=== PATIENT | female | born 1965 | race Caucasian/White ===

== ENCOUNTER 2020-11-05 18:08 | Inpatient (IN) | payer BC ==
[~2020-11-05] VITALS: Ht 170.2 cm; Wt 72.0 kg
[2020-11-05 18:51] LABS: Basophils # (auto) 0 10 ^3/uL (0-0.2); Basophils % (auto) 0.2 % (0.0-2.0); Eosinophils # (auto) 0 10 ^3/uL (0-0.8); Eosinophils % (auto) 0.1 % (0.0-7.0); Lymphocytes # (auto) 1.3 10 ^3/uL (0.4-5.4); Lymphocytes % (auto) 9.7 % (10.0-50.0); Mean Corpuscular Hgb Conc. 34.2 g/dL (32.0-36.0); Mean Corpuscular Volume 93.4 fL (80.0-100.0); Monocytes # (auto) 1.5 10 ^3/uL (0-1.3); Monocytes % (auto) 11.4 % (0.0-12.0); Neutrophils # (auto) 10.4 10 ^3/uL (1.6-8.6); Neutrophils % (auto) 78.6 % (37.0-80.0); Red Blood Cells 4.39 10^6/uL (4.0-5.20); Red Cell Distribution Width 12.9 % (11.8-14.3); White Blood Cell 13.3 10^3/uL (4.4-10.8)
[2020-11-05 19:08] LABS: Albumin 3.6 g/dL (3.4-5.0); Calcium 8.7 mg/dL (8.5-10.1); Potassium 3.4 mmol/L (3.5-5.1)
[2020-11-05 19:12] LABS: Bilirubin, Total 1.3 mg/dL (0.2-1.0); Total Protein 7.8 g/dL (6.4-8.2)
[2020-11-05] MEDS ORDERED: TAMSULOSIN HYDROCHLORIDE 0.4 MG CAP PO ONE (21:45)
[2020-11-05] MEDS ORDERED: KETOROLAC TROMETH 30 MG/ML 1ML VIAL IV ONE (21:45)
[2020-11-05] MEDS ORDERED: SODIUM CHLORIDE 0.9% 1,000 ML IV ONE ×2 (21:45)
[2020-11-05] MEDS ORDERED: TEMAZEPAM 15 MG CAP PO PRN (22:15)
[2020-11-05] MEDS ORDERED: ALUM & MAG HYDROX-SIMETH LIQ(MAALOX) 30 ML PO PRN (22:15)
[2020-11-05] MEDS ORDERED: HYDROcodone-ACET 5/325MG TAB PO PRN (22:15)
[2020-11-05] MEDS ORDERED: ACETAMINOPHEN 325 MG TAB PO PRN (22:15)
[2020-11-05] MEDS ORDERED: LORazepam 0.5 MG TAB PO PRN (22:15)
[2020-11-06] MEDS: SODIUM CHLORIDE 0.9% 1,000 ML IV SCH ×2 (01:10→18:37)
[2020-11-06 05:28] LABS: Basophils # (auto) 0 10 ^3/uL (0-0.2); Basophils % (auto) 0.3 % (0.0-2.0); Eosinophils # (auto) 0 10 ^3/uL (0-0.8); Eosinophils % (auto) 0.4 % (0.0-7.0); Hematocrit 35.2 % (36.0-46.0); Hemoglobin 12.2 g/dL (12.2-16.2); Lymphocytes # (auto) 1.6 10 ^3/uL (0.4-5.4); Lymphocytes % (auto) 18.3 % (10.0-50.0); Mean Corpuscular Hemoglobin 32.5 pg (28.0-32.0); Mean Corpuscular Hgb Conc. 34.7 g/dL (32.0-36.0); Mean Corpuscular Volume 93.7 fL (80.0-100.0); Monocytes # (auto) 1.1 10 ^3/uL (0-1.3); Monocytes % (auto) 12.1 % (0.0-12.0); Neutrophils # (auto) 6.2 10 ^3/uL (1.6-8.6); Neutrophils % (auto) 68.9 % (37.0-80.0); Red Blood Cells 3.76 10^6/uL (4.0-5.20); Red Cell Distribution Width 12.8 % (11.8-14.3); White Blood Cell 8.9 10^3/uL (4.4-10.8)
[2020-11-06 05:47] LABS: Potassium 3.3 mmol/L (3.5-5.1)
[2020-11-06 05:54] LABS: BUN/Creatinine Ratio 15.5; Calcium 8.1 mg/dL (8.5-10.1)
[2020-11-06] MEDS ORDERED: POTASSIUM EFFERVESENT TAB 25 MEQ PO ONE (12:30)
[2020-11-06] MEDS ORDERED: levoFLOXacin 500 MG TAB PO ONE (12:30)
[2020-11-06 13:29] LABS: Urine Blood 2+ /uL (Negative); Urine Specific Gravity 1.012 (1.001-1.035)
[2020-11-06 13:49] LABS: Urine Bacteria FEW /hpf (None Seen); Urine Mucus FEW (None Seen); Urine WBC 48 /hpf (0 - 5)
[2020-11-06 17:00] VITALS: BP 88/34
[2020-11-06 20:12] LABS: INR 1.05 (0.9-1.15)
[2020-11-06] MEDS: DOCUSATE SOD 100 MG CAP PO PRN (20:39)
[2020-11-06 22:00] VITALS: BP 100/47
[2020-11-07] MEDS: MORPHINE SULF INJ 2 MG/ML SYRINGE 1ML IV PRN ×3 (04:45→22:06)
[2020-11-07 05:00] VITALS: BP 103/57
[2020-11-07 06:04] LABS: Basophils # (auto) 0 10 ^3/uL (0-0.2); Basophils % (auto) 0.3 % (0.0-2.0); Eosinophils # (auto) 0.1 10 ^3/uL (0-0.8); Eosinophils % (auto) 1.2 % (0.0-7.0); Hematocrit 36.6 % (36.0-46.0); Hemoglobin 12.7 g/dL (12.2-16.2); Lymphocytes # (auto) 1.2 10 ^3/uL (0.4-5.4); Lymphocytes % (auto) 16.6 % (10.0-50.0); Mean Corpuscular Hemoglobin 32.6 pg (28.0-32.0); Mean Corpuscular Hgb Conc. 34.7 g/dL (32.0-36.0); Mean Corpuscular Volume 94.1 fL (80.0-100.0); Monocytes # (auto) 0.9 10 ^3/uL (0-1.3); Monocytes % (auto) 12.2 % (0.0-12.0); Neutrophils # (auto) 4.9 10 ^3/uL (1.6-8.6); Neutrophils % (auto) 69.7 % (37.0-80.0); Red Blood Cells 3.89 10^6/uL (4.0-5.20); Red Cell Distribution Width 12.5 % (11.8-14.3); White Blood Cell 7.1 10^3/uL (4.4-10.8)
[2020-11-07 06:20] LABS: INR 1.04 (0.9-1.15)
[2020-11-07 06:47] LABS: Potassium 3.9 mmol/L (3.5-5.1)
[2020-11-07 07:05] LABS: Albumin 2.8 g/dL (3.4-5.0); BUN/Creatinine Ratio 17.1; Bilirubin, Total 0.6 mg/dL (0.2-1.0); Calcium 8.4 mg/dL (8.5-10.1); Total Protein 6.6 g/dL (6.4-8.2)
[2020-11-07 09:00] VITALS: BP 90/36
[2020-11-07] MEDS: levoFLOXacin 500 MG TAB PO SCH (09:34)
[2020-11-07] MEDS ORDERED: LIDOCAINE 2%HCL (LOCAL ANESTH.) INJ 20ML MDV ONE ×2 (10:39→11:31)
[2020-11-07] MEDS ORDERED: fentaNYL CITRATE 100 MCG/2 ML VL ONE (11:01)
[2020-11-07] MEDS ORDERED: MIDAZOLAM HCL 2MG/2ML 2ml VIAL (1mg/ml) ONE (11:01)
[2020-11-07] MEDS ORDERED: ONDANSETRON HCL 4 MG/2 ML VIAL ONE (11:08)
[2020-11-07] MEDS ORDERED: IOHEXOL 350 MG/ML 100ML IJ ONE (11:08)
[2020-11-07] MEDS ORDERED: diphenhdrAMINE HCL 50 MG/1 ML VL ONE (11:24)
[2020-11-07 12:46] VITALS: BP 110/64
[2020-11-07] MEDS: ONDANSETRON HCL 4 MG/2 ML VIAL IV PRN (14:30)
[2020-11-07] MEDS: SODIUM CHLORIDE 0.9% 1,000 ML IV SCH (16:57)
[2020-11-07] MEDS: Ensure HIGH Protein Chocolate 8oz Bottle PO SCH (18:00)
[2020-11-07] MEDS: traMADol HCL 50 MG TAB PO PRN (19:59)
[2020-11-07 22:00] VITALS: BP_SYST 116; BP_SYST 118; BP_DIAS 64; BP_DIAS 72
[2020-11-08] MEDS: SODIUM CHLORIDE 0.9% 1,000 ML IV SCH ×2 (01:00→14:37)
[2020-11-08] MEDS: MORPHINE SULF INJ 2 MG/ML SYRINGE 1ML IV PRN ×2 (04:33→21:11)
[2020-11-08 05:00] VITALS: BP 100/49
[2020-11-08 06:03] LABS: Basophils # (auto) 0 10 ^3/uL (0-0.2); Basophils % (auto) 0.4 % (0.0-2.0); Eosinophils # (auto) 0.1 10 ^3/uL (0-0.8); Eosinophils % (auto) 1.5 % (0.0-7.0); Hematocrit 30.8 % (36.0-46.0); Hemoglobin 10.9 g/dL (12.2-16.2); Lymphocytes # (auto) 1.6 10 ^3/uL (0.4-5.4); Lymphocytes % (auto) 31.9 % (10.0-50.0); Mean Corpuscular Hemoglobin 33.2 pg (28.0-32.0); Mean Corpuscular Hgb Conc. 35.5 g/dL (32.0-36.0); Mean Corpuscular Volume 93.5 fL (80.0-100.0); Monocytes # (auto) 0.6 10 ^3/uL (0-1.3); Neutrophils # (auto) 2.8 10 ^3/uL (1.6-8.6); Neutrophils % (auto) 54.2 % (37.0-80.0); Red Blood Cells 3.29 10^6/uL (4.0-5.20); Red Cell Distribution Width 12.6 % (11.8-14.3); White Blood Cell 5.2 10^3/uL (4.4-10.8)
[2020-11-08 06:24] LABS: Potassium 3.5 mmol/L (3.5-5.1)
[2020-11-08 06:35] LABS: Albumin 2.4 g/dL (3.4-5.0); BUN/Creatinine Ratio 14.6; Bilirubin, Total 0.7 mg/dL (0.2-1.0); Calcium 8.2 mg/dL (8.5-10.1); Total Protein 5.8 g/dL (6.4-8.2)
[2020-11-08] MEDS: Ensure HIGH Protein Chocolate 8oz Bottle PO SCH ×3 (08:00→18:00)
[2020-11-08] MEDS: traMADol HCL 50 MG TAB PO PRN ×2 (08:28→17:03)
[2020-11-08 09:00] VITALS: BP 95/36
[2020-11-08] MEDS: levoFLOXacin 500 MG TAB PO SCH (10:00)
[2020-11-08] MEDS: ONDANSETRON HCL 4 MG/2 ML VIAL IV PRN ×3 (11:39→21:10)
[2020-11-08 13:00] VITALS: BP 96/45
[2020-11-08] MEDS: LACTULOSE 20Gm/30ML SOLN PO PRN (15:30)
[2020-11-08 17:00] VITALS: BP 100/49
[2020-11-08 22:00] VITALS: BP 124/60
[2020-11-09] MEDS: traMADol HCL 50 MG TAB PO PRN ×3 (01:58→18:32)
[2020-11-09 05:00] VITALS: BP 82/47
[2020-11-09 06:28] LABS: Basophils # (auto) 0 10 ^3/uL (0-0.2); Basophils % (auto) 0.4 % (0.0-2.0); Eosinophils # (auto) 0.1 10 ^3/uL (0-0.8); Eosinophils % (auto) 2.1 % (0.0-7.0); Hematocrit 31.5 % (36.0-46.0); Hemoglobin 11.2 g/dL (12.2-16.2); Lymphocytes # (auto) 1.6 10 ^3/uL (0.4-5.4); Lymphocytes % (auto) 35.1 % (10.0-50.0); Mean Corpuscular Hemoglobin 33.2 pg (28.0-32.0); Mean Corpuscular Hgb Conc. 35.5 g/dL (32.0-36.0); Mean Corpuscular Volume 93.3 fL (80.0-100.0); Monocytes # (auto) 0.5 10 ^3/uL (0-1.3); Monocytes % (auto) 11.2 % (0.0-12.0); Neutrophils # (auto) 2.4 10 ^3/uL (1.6-8.6); Neutrophils % (auto) 51.2 % (37.0-80.0); Nucleated Red Blood Cells % 0.1 %; Red Blood Cells 3.37 10^6/uL (4.0-5.20); Red Cell Distribution Width 12.1 % (11.8-14.3); White Blood Cell 4.6 10^3/uL (4.4-10.8)
[2020-11-09 06:41] LABS: BUN/Creatinine Ratio 12.5; Potassium 3.5 mmol/L (3.5-5.1)
[2020-11-09] MEDS: SODIUM CHLORIDE 0.9% 1,000 ML IV SCH (06:45)
[2020-11-09 09:04] VITALS: BP 102/52
[2020-11-09] MEDS: levoFLOXacin 500 MG TAB PO SCH (09:58)
[2020-11-09] MEDS: Ensure HIGH Protein Chocolate 8oz Bottle PO SCH ×3 (10:00→18:09)
[2020-11-09 13:00] VITALS: BP 93/58
[2020-11-09 16:43] VITALS: BP 101/50
[2020-11-09] MEDS: LACTULOSE 20Gm/30ML SOLN PO PRN (18:22)
[2020-11-09] MEDS: DOCUSATE SOD 100 MG CAP PO PRN (20:56)
[2020-11-09 22:00] VITALS: BP 109/61
[2020-11-10 05:25] VITALS: BP 98/42
[2020-11-10 06:19] LABS: Basophils # (auto) 0 10 ^3/uL (0-0.2); Basophils % (auto) 0.4 % (0.0-2.0); Eosinophils # (auto) 0.1 10 ^3/uL (0-0.8); Eosinophils % (auto) 2.3 % (0.0-7.0); Hematocrit 33.5 % (36.0-46.0); Hemoglobin 11.9 g/dL (12.2-16.2); Lymphocytes # (auto) 1.4 10 ^3/uL (0.4-5.4); Lymphocytes % (auto) 25.3 % (10.0-50.0); Mean Corpuscular Hemoglobin 32.8 pg (28.0-32.0); Mean Corpuscular Hgb Conc. 35.4 g/dL (32.0-36.0); Mean Corpuscular Volume 92.6 fL (80.0-100.0); Monocytes # (auto) 0.5 10 ^3/uL (0-1.3); Monocytes % (auto) 9.4 % (0.0-12.0); Neutrophils # (auto) 3.6 10 ^3/uL (1.6-8.6); Neutrophils % (auto) 62.6 % (37.0-80.0); Nucleated Red Blood Cells % 0.1 %; Red Blood Cells 3.62 10^6/uL (4.0-5.20); Red Cell Distribution Width 12.1 % (11.8-14.3); White Blood Cell 5.7 10^3/uL (4.4-10.8)
[2020-11-10 06:31] LABS: Potassium 3.6 mmol/L (3.5-5.1)
[2020-11-10 06:43] LABS: BUN/Creatinine Ratio 11.9; Calcium 8.5 mg/dL (8.5-10.1)
[2020-11-10 09:00] VITALS: BP 99/59
[2020-11-10] MEDS: Ensure HIGH Protein Chocolate 8oz Bottle PO SCH ×3 (09:18→17:43)
[2020-11-10] MEDS: levoFLOXacin 500 MG TAB PO SCH (09:18)
[2020-11-10 12:45] VITALS: BP 105/64
[2020-11-10] MEDS ORDERED: LACTULOSE 10g/15ml SOLN PR ONE (13:45)
[2020-11-10 16:43] VITALS: BP 127/79
[2020-11-10] MEDS: TAMSULOSIN HYDROCHLORIDE 0.4 MG CAP PO SCH ×2 (17:42→18:00)
[2020-11-10] MEDS: SODIUM CHLORIDE 0.9% 1,000 ML IV SCH (17:49)
== END 2020-11-10 18:45 | disposition left against medical advice (07) | DRG 690 ==
LOC: ER 18:10 → OVERFLOW 22:03 → WEST WING 11-06 14:45
PROVIDERS: ADMIT Hospitalist; ATTEND Internal Medicine
PROC: 0T9130Z Drainage of Left Kidney with Drainage Device, Percutaneous Approach (ICD-10-PCS; principal; 2020-11-07)
PROC: BT1F1ZZ Fluoroscopy of Left Kidney, Ureter and Bladder using Low Osmolar Contrast (ICD-10-PCS; 2020-11-07)
PROC: BT42ZZZ Ultrasonography of Left Kidney (ICD-10-PCS; 2020-11-07)
DX: N13.6 Pyonephrosis (principal); E44.0 Moderate protein-calorie malnutrition; N17.0 Acute kidney failure with tubular necrosis; E87.6 Hypokalemia; K59.00 Constipation, unspecified; N18.9 Chronic kidney disease, unspecified; Z68.24 Body mass index [BMI] 24.0-24.9, adult; Z88.0 Allergy status to penicillin; Z20.822 Contact with and (suspected) exposure to COVID-19; Z53.29 Procedure and treatment not carried out because of patient's decision for other reasons
CPT/HCPCS: 36415; 74176; 74425; 76942; 80048; 80053; 81001; 84443; 85025; 85610; 87086; 87426; 93005; 96361; 96374; 99152; 99153; C1729; G0378; J1885; J2250; J2405